=== PATIENT | female | born 2000 | race African-American/Black ===

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

== ENCOUNTER 2020-03-13 21:24 | Emergency (ER) | payer MEDICAID ==
[~2020-03-13] VITALS: Ht 180.3 cm; Wt 91.0 kg
[2020-03-13 21:43] VITALS: BP 140/85
[2020-03-13] MEDS ORDERED: ACETAMINOPHEN 325MG TABLET PO ONE (22:15)
[2020-03-13 22:43] LABS: CLARITY URINE CLOUDY (CLEAR); COLOR URINE YELLOW (YELLOW); KETONES URINE 1+ (NEGATIVE); LEUKOCYTE ESTERASE URINE 2+ (NEGATIVE); NITRITE URINE NEGATIVE (NEGATIVE); OCCULT BLOOD URINE 3+ (NEGATIVE); PROTEIN URINE 1+ (NEGATIVE); SPECIFIC GRAVITY URINE 1.036 (1.005-1.030)
[2020-03-13] MEDS ORDERED: CEPHALEXIN 250MG CAPSULE PO ONE (23:15)
== END 2020-03-13 23:47 | disposition home or self-care (01) ==
LOC: ER 21:24
DX: N39.0 Urinary tract infection, site not specified (principal); F89 Unspecified disorder of psychological development
CPT/HCPCS: 81003; 81025; 99283

== ENCOUNTER 2020-07-31 09:50 | Emergency (ER) | payer MEDICAID ==
[~2020-07-31] VITALS: Ht 180.3 cm; Wt 98.0 kg
[2020-07-31 09:56] VITALS: BP 132/82
[2020-07-31] MEDS ORDERED: DEXAMETHASONE 4MG TABLET PO ONE (10:15)
== END 2020-07-31 10:26 | disposition home or self-care (01) ==
LOC: ER 09:50
DX: J02.8 Acute pharyngitis due to other specified organisms (principal); Z91.018 Allergy to other foods
CPT/HCPCS: 99283; J8540